=== PATIENT | male | born 1995 | race African-American/Black ===

== ENCOUNTER 2018-09-03 10:12 | Emergency (ER) | payer OTHER ==
[~2018-09-03] VITALS: Ht 177.8 cm; Wt 74.8 kg
[2018-09-03 11:09] LABS: HEMATOCRIT 45.4 % (42.0-52.0); HEMOGLOBIN 15.3 gm/dL (14.0-18.0); MCHC 33.7 g/dL (28.0-37.0); MCV 80.2 fL (80.0-100.0); PLATELET COUNT 265 thou/uL (150-400); RBC 5.66 mil/uL (4.50-6.00); RDW 14.9 % (10.5-14.5); WBC 5.7 thou/uL (4.0-11.0)
[2018-09-03 11:20] LABS: ANION GAP 6 mmol/L (7-16); BUN 13 mg/dL (7-18); CALCIUM 9.7 mg/dL (8.5-10.1); CHLORIDE 99 mmol/L (98-107); CO2 31 mmol/L (21-32); CREATININE 1.4 mg/dL (0.7-1.3); GLUCOSE 87 mg/dL (74-106); POTASSIUM 3.8 mmol/L (3.5-5.1); SODIUM 136 mmol/L (136-145)
[2018-09-03 11:28] LABS: ALBUMIN 4.1 g/dL (3.4-5.0); SGOT 16 U/L (15-37); SGPT 34 U/L (30-65); TOTAL BILIRUBIN 1.2 mg/dL (<0.1-1.0); TOTAL PROTEIN 8.3 g/dL (6.4-8.2); TROPONIN-I <0.06 ng/mL (<0.06)
[2018-09-03 11:39] LABS: URINE BILIRUBIN NEGATIVE (Negative); URINE BLOOD NEGATIVE (Negative); URINE CLARITY CLEAR; URINE COLOR YELLOW; URINE GLUCOSE-RANDOM* NEGATIVE (Negative); URINE KETONES NEGATIVE (Negative); URINE LEUKOCYTES-REFLEX NEGATIVE (Negative); URINE NITRITE-REFLEX NEGATIVE (Negative); URINE PROTEIN (DIPSTICK) NEGATIVE (Negative); URINE SPECIFIC GRAVITY 1.025 (1.005-1.035)
[2018-09-03 11:46] LABS: ABSOLUTE NEUTROPHILS 3.4 thou/uL (1.4-8.2)
[2018-09-03 11:46] LABS: AMP/METHAMP Negative (Negative); BARBITURATES Negative (Negative); BENZODIAZEPINES Negative (Negative); COCAINE Negative (Negative); METHADONE Negative (Negative); OPIATES Negative (Negative); PCP Negative (Negative)
[2018-09-03 12:38] VITALS: BP 122/68
--- NOTE | 2018-09-03 14:00 | EKG ---
[address] [place] [address] ELECTROCARDIOGRAM REPORT Name: NOLVIA KUMAR Room #: [facility]#: [id number] Admission: 09/03/18 Attend Phys: Discharge: 09/03/18 Date of : [birth year] Report #: [id number] THIS REPORT FOR: //name// [facility] ED Test Date: 2018-09-03 Test Time: 11:19:49 Pat Name: NOLVIA KUMAR Department: Room: Gender: Water Project Manager: ROSI : 1995 Requested By: Antonia Pritchard Order Number: [id number] MD: Wale Sutton Measurements Intervals [place] Rate: 81 P: 55 MS: 158 QRS: 38 QRSD: 86 T: 33 QT: 330 QTc: 383 Interpretive Statements Sinus rhythm Normal tracing No previous ECG available for comparison Electronically Signed On 09-03-2018 14:00:06 [employer] by Wale Sutton [email or web address] <ELECTRONICALLY SIGNED> By: Wale Sutton MD, [facility] 09/03/18 1400 1119 1119 Wale Sutton MD, FACC /EPI
== END 2018-09-03 12:41 | disposition home or self-care (01) ==
LOC: ER 10:12
PROVIDERS: Physician Assistant
DX: R55 Syncope and collapse (principal); M54.2 Cervicalgia